=== PATIENT | male | born 1955 | race Caucasian/White ===

== ENCOUNTER 2016-09-22 20:06 | Emergency (ER) | payer BC ==
[~2016-09-22] VITALS: Ht 182.9 cm; Wt 155.6 kg
[~2016-09-22 20:06] MED LIST: AMARYL1 MG PO; AMARYL2 MG PO; AUGMENTIN875 MG PO; GLIMEPIRIDE 1 MG TAB; IBUPROFEN800 MG; LISINOPRIL10 MG; PERCOCET 5/31 TABLET PO; PRADAXA150 MG; PRADAXA75 MG PO; SERTRALINE HCL25 MG
[2016-09-22 21:03] LABS: HEMATOCRIT 40.8 % (38.0-50.0); MCH 30.8 PG (29.0-34.0); MCHC 35.8 G/DL (30.0-36.0); MCV 86.1 FL (86-99); MEAN PLAT.VOLUME 9.8 uM^3 (9.0-12.4); PLATELET COUNT 200 K/uL (156-360); RBC DIS.WIDTH-CV 12.5 % (11.8-14.6); RBC DIS.WIDTH-SD 38.8 % (39-53); RED BLOOD COUNT 4.74 M/uL (4.00-5.50); WHITE BLOOD COUNT 9.7 K/uL (4.1-10.2)
[2016-09-22 21:12] LABS: CHLORIDE 102 mEq/L (99-109); POTASSIUM 3.9 mEq/L (3.7-5.4); SODIUM 135 mEq/L (136-147)
[2016-09-22 21:15] LABS: GLUCOSE 150 mg/dL (70-99)
[2016-09-22 21:16] LABS: ANION GAP 10 MEQ/L (2-14)
[2016-09-22 21:17] LABS: TOTAL BILIRUBIN 0.6 mg/dL (0.0-1.0)
[2016-09-22 21:18] LABS: ALKALINE PHOSPHATASE 38 IU/L (3-129); GFR ESTIMATE (CALCULATED) > 59 mL/min/
[2016-09-22 21:20] LABS: UREA NITROGEN (BUN) 28 mg/dL (9-23)
[2016-09-22 21:22] LABS: LIPASE 21 U/L (1.0-51.0)
[2016-09-22] MEDS ORDERED: ZANTAC150 MG PO (22:53)
[2016-09-22] MEDS ORDERED: ZOFRAN ODT4 MG PO (22:53)
[2016-09-22] MEDS ORDERED: ULTRAM50 MG PO (22:53)
[2016-09-22 23:33] VITALS: BP 123/83
== END 2016-09-22 23:35 | disposition home or self-care (01) ==
LOC: RME 20:06 → EME 20:06 → RME 23:35
DX: R10.9 Unspecified abdominal pain (principal); R11.0 Nausea; I10 Essential (primary) hypertension; E11.9 Type 2 diabetes mellitus without complications; Z79.01 Long term (current) use of anticoagulants; Z87.891 Personal history of nicotine dependence
CPT/HCPCS: 74177; 80053; 81003; 83690; 85027; 99281; 99285; J2270; J2405; J7030

== ENCOUNTER → 2018-03-15 | Outpatient (CLI) | payer BC ==
[~2018-03-15] MED LIST changes: +ULTRAM50 MG PO; +ZANTAC150 MG PO; +ZOFRAN ODT4 MG PO
== END | disposition home or self-care (01) ==
LOC: NUC 12:35
DX: R10.13 Epigastric pain (principal); R10.33 Periumbilical pain; R19.4 Change in bowel habit; R14.3 Flatulence; K58.0 Irritable bowel syndrome with diarrhea; B18.2 Chronic viral hepatitis C; Z86.010 Personal history of colon polyps; Z83.71 Family history of colonic polyps; Z80.0 Family history of malignant neoplasm of digestive organs
CPT/HCPCS: 78227; A9537; J2805

== ENCOUNTER 2018-04-21 01:03 | Emergency (ER) | payer BC ==
[~2018-04-21] VITALS: Ht 182.9 cm; Wt 151.2 kg
[2018-04-21 01:42] LABS: HEMATOCRIT 39.4 % (38.0-50.0); MCH 31.4 PG (29.0-34.0); MCHC 35.5 G/DL (30.0-36.0); MCV 88.3 FL (86-99); PLATELET COUNT 195 K/uL (156-360); RBC DIS.WIDTH-CV 12.8 % (11.8-14.6); RBC DIS.WIDTH-SD 41.1 % (39-53); RED BLOOD COUNT 4.46 M/uL (4.00-5.50); WHITE BLOOD COUNT 8.6 K/uL (4.1-10.2)
[2018-04-21 01:54] LABS: ALBUMIN 3.9 g/dL (3.2-4.8); CHLORIDE 104 mEq/L (99-109); INTER. NORMALIZED RATIO 1.1; POTASSIUM 3.7 mEq/L (3.7-5.4); SODIUM 139 mEq/L (136-147)
[2018-04-21 01:56] LABS: GLUCOSE 219 mg/dL (70-99); TOTAL PROTEIN 6.3 g/dL (6.4-8.3)
[2018-04-21 01:58] LABS: TOTAL BILIRUBIN 1.2 mg/dL (0.0-1.0)
[2018-04-21 02:00] LABS: ALKALINE PHOSPHATASE 49 IU/L (3-129); CREATININE 0.9 mg/dL (0.6-1.3); GFR ESTIMATE (CALCULATED) > 59 mL/min/ (58.99-99999)
[2018-04-21 02:01] LABS: UREA NITROGEN (BUN) 22 mg/dL (9-23)
[2018-04-21 02:02] LABS: AST (GOT) 23 IU/L (2-34)
[2018-04-21 02:03] LABS: ALT (GPT) 74 IU/L (3-49); LIPASE 22 U/L (1.0-51.0)
[2018-04-21] MEDS ORDERED: LYRICA75 MG PO (02:30)
[2018-04-21] MEDS ORDERED: LISINOPRIL-HCT1 EACH PO (02:31)
[2018-04-21] MEDS ORDERED: XARELTO20 MG PO (02:31)
[2018-04-21] MEDS ORDERED: EZETIMIBE10 MG PO (02:33)
[2018-04-21] MEDS ORDERED: TOPROL XL100 MG PO (02:34)
[2018-04-21] MEDS ORDERED: GLUCOPHAGE1000 MG PO (02:34)
[2018-04-21] MEDS ORDERED: PROTONIX20 MG PO (02:36)
[2018-04-21] MEDS ORDERED: BENTYL10 MG PO (02:36)
[2018-04-21 04:31] VITALS: BP 138/86
== END 2018-04-21 04:34 | disposition home or self-care (01) ==
LOC: EME 01:03
PROVIDERS: Emergency Medicine
DX: R10.9 Unspecified abdominal pain (principal); I10 Essential (primary) hypertension; E11.9 Type 2 diabetes mellitus without complications; Z87.891 Personal history of nicotine dependence; Z79.01 Long term (current) use of anticoagulants
CPT/HCPCS: 74177; 80053; 83690; 85027; 85610; 85730; 99281; 99285; J1200; J3010; J7030